=== PATIENT | male | born 1950 | race Caucasian/White ===

== ENCOUNTER → 2017-12-08 10:23 | Outpatient (CLI) | payer MEDICARE, OTHER, SELFPAY ==
--- NOTE | 2017-12-08 10:33 | RAD_ITS ---
STUDY: X-RAY - PELVIS REASON FOR EXAM: Male, 67 years old. Bilateral hip pain, arthritis. TECHNIQUE: Pelvis. COMPARISON: None. FINDINGS: Osteopenia. Multilevel mild to moderate lumbar degenerative disc disease and facet arthropathy. Partial fusion/ankylosis of the SI joints bilaterally. Iliac crests and pubic rami intact. No significant degeneration of the left hip joint. Right hip joint mild joint space narrowing, minimal superior acetabular margin osteophytic spurring, acetabular roof mild sclerosis. There is a cortical hump associated with synovial herniation pit of the superior head neck junction of femur, a feature that could reflect underlying femoral acetabular impingement. RAD/Pelvis 1 or 2 Views IMPRESSION: Mild DJD of the right hip articulation with features suggesting the possibility of. No significant DJD of the left hip joint. Multilevel lumbar spondylosis. 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 Electronically Signed: Ry Oneil, at 11:28 EDT Tel , Service support ,
[2017-12-08 12:34] LABS: Erythrocyte Sedimentation Rate 14 mm/hr (0-20)
[2017-12-08 12:38] LABS: ALB/GLOB Ratio 0.8 RATIO (0.9-2.4); AST(SGOT) 26 U/L (15-37); Absolute Lymphocyte Count 1.87 X10^3/ul (0.83-4.51); Absolute Neutrophil Count 4.2 X10^3/uL (2.0-7.7); Alanine Aminotransfer ALT/SGPT 41 U/L (16-61); Albumin, Serum 3.6 g/dL (3.2-5.0); Alkaline Phosphatase 62 U/L (45-117); Anion Gap 6 (5-15); BUN 15 mg/dL (7-18); BUN/Creat Ratio 16.4 RATIO (10-20); Basophil# 0.03 X10^3/uL; Basophil% 0.4 % (0-1); Calcium,Total 8.7 mg/dL (8.5-10.1); Chloride 106 mmol/L (98-107); Creatinine, Serum 0.92 mg/dL (0.70-1.30); EST Glomerular Filtration Rate 88 mL/min (>60); Eosinophil# 0.25 X10^3/uL; Eosinophils% 3.5 % (0-5); Est Glom Filt Rate - Afr Amer 106 mL/min (>60); Globulin 4.3 g/dL (2.2-4.2); Glucose 91 mg/dL (74-106); Hematocrit 43.7 % (40-54); Lymphocyte # 1.87 X10^3/ul (4.0); Lymphocyte % 26.3 % (19-41); Mean Corpuscular Volume 96.9 fL (80-94); Mean Platelet Vol. 9.8 fl (6.2-12.0); Monocyte% 11.3 % (0-10); Neutrophil # 4.15 X10^3/uL (2.7-7.7); Neutrophil % 58.4 % (47-70); Platelet Count 373 K/mm3 (150-450); Potassium 4.4 mmol/L (3.5-5.1); Protein, Total 7.9 g/dL (6.4-8.2); RBC Distribution Width CV 12.8 % (11.6-14.6); RBC Distribution Width SD 45.3 fl (35.1-43.9); Red Blood Count 4.51 M/mm3 (4.6-6.2); Rheumatoid Factor < 10.0 IU/mL (<15); Sodium Level 140 mmol/L (136-145); White Blood Count 7.1 K/mm3 (4.4-11.0)
[2017-12-08 12:39] LABS: POSITIVE COUNT NO; POSITIVE DIFFERENTIAL NO; POSITIVE MORPHOLOGY NO
[2017-12-16 11:10] LABS: CCP IgG Antibodies 3 units (0-19); HEPATITIS B SURFACE AG Negative (Negative); HLA B27 Negative (.); Hep B Surface Antibodies Non Reactive (.); Hep C Antibodies <0.1 s/co ratio (0.0-0.9)
== END ==
PROVIDERS: Family Provider Family Medicine; PCP Family Medicine; Visit Provider Internal Medicine Rheumatology
DX: M06.4 Inflammatory polyarthropathy (principal); M21.40 Flat foot [pes planus] (acquired), unspecified foot; M17.0 Bilateral primary osteoarthritis of knee; M47.892 Other spondylosis, cervical region
CPT/HCPCS: 36415; 72170; 80053; 81374; 85025; 85652; 86140; 86200; 86431; 86706; 86803; 87340

== ENCOUNTER 2021-09-06 20:59 | Emergency (ER) | payer BC, SELFPAY ==
[2021-09-06 20:59] VITALS: BP 133/84; PULSE 95; RESP 16; TEMP 37.1; O2SAT 97; BMI 38.3
--- NOTE | 2021-09-06 21:50 | EKG12_ITS ---
Test Reason : TACHYCARDIA Blood Pressure : / mmHG Vent. Rate : 087 BPM Atrial Rate : 087 BPM P-R Int : 168 ms QRS Dur : 098 ms QT Int : 382 ms P-R-T Axes : 039 028 025 degrees QTc Int : 459 ms Normal sinus rhythm Normal ECG Confirmed by ARA TURPIN, DENA ([id number]), video news editor ANDREW MALONEY ([id number]) on 09/10/2021 11:09:20 AM Referred By: Confirmed By:DENA BULLOCK MD
--- NOTE | 2021-09-06 22:28 | RAD_ITS ---
STUDY: X-RAY CHEST REASON FOR EXAM: Male, 70 years old. Cough TECHNIQUE: Single frontal view of the chest. COMPARISON: None. FINDINGS: The lungs are clear and expanded. There is no demonstrated pleural abnormality. Heart size is within normal limits with normal pulmonary vasculature. The thoracic aorta is moderately elongated. Thoracic spine degenerative spurring. No acute osseous abnormality. Trachea is midline. There is no demonstrated abnormality of the visualized soft tissue structures of the upper abdomen. RAD/Chest 1 View (Portable) IMPRESSION: No acute cardiopulmonary disease process identified. Electronically Signed: Bay Hooker MD at 23:01 EDT ,
[2021-09-06 22:29] LABS: Absolute Lymphocyte Count 1.87 X10^3/uL (0.83-4.51); Absolute Neutrophil Count 15.7 X10^3/uL (2.0-7.7); Basophil# 0.07 X10^3/uL; Basophil% 0.4 % (0-1); Eosinophil# 0.05 X10^3/uL; Eosinophils% 0.3 % (0-5); Hematocrit 44.3 % (40-54); Hemoglobin 14.9 g/dL (13.0-16.5); Lymphocyte # 1.87 X10^3/ul (0.83-4.51); Lymphocyte % 9.6 % (19-41); Mean Corp Hgb Conc 33.6 g/dL (32-36); Mean Corpuscular Hgb 31.4 pg (27.0-32.0); Mean Corpuscular Volume 93.5 fL (80-94); Mean Platelet Vol. 9.2 fl (6.2-12.0); Monocyte# 1.73 X10^3/uL; Monocyte% 8.9 % (0-10); NRBC Flagged by Analyzer 0 % (0-5); Neutrophil # 15.73 X10^3/uL (2.7-7.7); Neutrophil % 80.4 % (47-70); POSITIVE DIFFERENTIAL YES; Platelet Count 349 K/mm3 (150-450); RBC Distribution Width CV 13.2 % (11.6-14.6); RBC Distribution Width SD 45.5 fl (35.1-43.9); Red Blood Count 4.74 M/mm3 (4.6-6.2); White Blood Count 19.5 K/mm3 (4.4-11.0)
[2021-09-06 22:42] VITALS: BP 115/76; PULSE 78; RESP 24; O2SAT 94
[2021-09-06 22:48] LABS: ALB/GLOB Ratio 0.9 RATIO (0.9-2.4); AST(SGOT) 20 U/L (15-37); Alanine Aminotransfer ALT/SGPT 35 U/L (16-61); Albumin, Serum 3.8 g/dL (3.2-5.0); Alkaline Phosphatase 62 U/L (45-117); Anion Gap 6 (5-15); BUN 19 mg/dL (7-18); BUN/Creat Ratio 22.3 RATIO (10-20); Calcium,Total 8.4 mg/dL (8.5-10.1); Chloride 106 mmol/L (98-107); Creatinine, Serum 0.85 mg/dL (0.70-1.30); EST Glomerular Filtration Rate 94 mL/min (>60); Est Glom Filt Rate - Afr Amer 114 mL/min (>60); Estimated Creatinine Clearance 76.68 ml/min; Globulin 4.2 g/dL (2.2-4.2); Glucose 107 mg/dL (74-106); Potassium 3.9 mmol/L (3.5-5.1); Sodium Level 136 mmol/L (136-145); Troponin-I HS 3 pg/mL (3.0-78.0)
[2021-09-06] MEDS: 0.9% Normal Saline 1,000 ML 1000 ML IV (22:51)
[2021-09-06 22:53] LABS: Bacteria 0 SEEN /hpf (None Seen); Mucous, Urine 0 SEEN /hpf (<or=2+); Red Blood Cells-Urine 0 SEEN /hpf (0-5); Squamous Epithelial Cells - UA 0 SEEN /hpf (0-5); White Blood Cells 0 SEEN /hpf (0-5)
[2021-09-06 22:54] LABS: Color, Urine Yellow (Yellow); Glucose, Dipstick Normal (Normal); Ketone-Dipstick 15 mg/dl (Negative); Leukocyte Esterase-Dipstick Negative /ul (Negative); Nitrite-Dipstick Negative (Negative); Occult Blood-Urine 25 /ul (Negative); Protein-Dipstick Negative (Negative); Specific Gravity, Urine 1.025 (1.002-1.030); Urine Bilirubin Dipstick Negative (Negative); Urine Clarity Clear (Clear); Urine Urobilinogen Normal (Normal)
[2021-09-06 22:57] LABS: Differential Comment SCANNED; Differential Indicated SCAN CRITERIA MET
--- NOTE | 2021-09-06 23:33 | CT_ITS ---
STUDY: CT ABDOMEN AND PELVIS WITH CONTRAST REASON FOR EXAM: Male, 70 years old patient with weakness. RADIATION DOSAGE (If Supplied By Facility): CTDIvol = ( 15.07 ) mGy, DLP = ( 976.41 ) mGycm TECHNIQUE: Transaxial images were obtained from the dome of the diaphragm to the symphysis pubis with oral contrast. 100 mL of IV Isovue-300 was administered. Sagittal and coronal images were reconstructed. Individualized dose optimization techniques were used for this CT. COMPARISON: None. FINDINGS: The visualized lung bases are unremarkable. The visualized portions of the heart are within normal limits. There is hepatomegaly with diffuse hepatic enlargement. The liver measures approximately 20 cm in greatest dimension. There is non-visualization of the gallbladder, which may be secondary to either contraction or a prior cholecystectomy. There is dilatation of the extrahepatic biliary ducts with maximum transverse dimension of approximately 11.2 mm. Normal spleen. Normal pancreas. Normal bilateral adrenal glands. There is a small cyst arising from lower pole right kidney measuring approximately 1.4 cm. There is no evidence for hydronephrosis, hydroureter or radiopaque ureteral calculus. Normal visualized stomach. There is no evidence for dilated bowel, ascites or pneumoperitoneum. Enteric contrast is visible within the distal small bowel and colon. There are multiple diverticula primarily in the descending colon and sigmoid colon. There is minimal solid stool present. The colon is opacified primarily with enteric contrast. There is liquid stool visible particularly in the rectum and distal sigmoid colon suggesting diarrhea and sequela of an acute infectious or inflammatory colitis. The appendix is visualized and appears normal. There is diffuse atherosclerotic calcification of the abdominal aorta and iliac arteries, without a demonstrated aneurysm. There is venous distention of the inferior vena cava (IVC). Normal retroperitoneum. Normal urinary bladder. Normal visualized prostate gland. Normal abdominal wall. There are diffuse degenerative changes of the visualized spine. The patient has had a total right hip arthroplasty. CT/Abdomen/Pelvis WITH Contrast IMPRESSION: 1. The findings suggest possible acute infectious or inflammatory colitis. 2. Hepatomegaly. Electronically Signed: Arlen Medina MD at 2:40 EDT ,
[2021-09-06 23:44] VITALS: BP 117/61; PULSE 62; RESP 19; O2SAT 95
--- NOTE | 2021-09-07 00:24 | EDS_ITS ---
HPI History of Present Illness Chief Complaint: Weakness Informant: patient Onset/Context/Timing Onset: Today Context: Gradual Onset Timing: Continuous Quality: Fatigue Location: Generalized Worsened by: Nothing Relieved by: Nothing Narrative Narrative: Patient presents with increasing fatigue throughout the day today. Patient states he woke up today and has felt tired all day. Patient states that he feels weak as well. Patient states that his heart rate usually runs in the 50s and 60s. Patient states that he checked his heart rate earlier today and it was 110. Patient states it is improving. Patient states nothing makes his fatigue any better or worse. Patient admits to recent cough. Patient denies any chest pain or shortness of breath. Patient denies any nausea or vomiting. Patient denies any urinary complaints. [facility] Medical History Atrial fibrillation Former smoker Right cataract Home Medications atorvastatin 10 mg PO QHS 09/06/21 [History Last Taken Unknown] biotin 10,000 mcg PO DAILY 09/06/21 [History Last Taken Unknown] docusate sodium [Colace] 100 mg PO QODAY 09/06/21 [History Last Taken Unknown] meclizine 12.5 mg PO BID 09/06/21 [History Last Taken Unknown] zinc 50 mg PO DAILY 09/06/21 [History Last Taken Unknown] Allergy/AdvReac Type Severity Reaction Status Date / Time No Known Allergies Allergy Verified 09/06/21 21:01 Surgical History History of cholecystectomy History of right hip replacement Social History Smoking Status: Former smoker ROS ROS ED Constitutional Constitutional ED: Denies chills or fever(s) Eyes Eyes: Denies blurry vision or change in vision ENT ENT ED: Denies rhinorrhea or sore throat Cardiovascular Cardiovascular: Denies chest pain or palpitations Respiratory/Chest Respiratory/Chest: Reports cough; Denies dyspnea or sputum Gastrointestinal Gastrointestinal: Denies nausea or vomiting Genitourinary Genitourinary ED: Denies dysuria or hematuria Musculoskeletal Musculoskeletal: Denies back pain or neck pain Integumentary Denies abscess or rash Neurologic Neurologic: Reports weakness; Denies headache(s) Allergic/Immunologic Allergic/Immunologic ED: Denies mouth swelling or urticaria EXAM Physical Exam Const Vital Signs: 09/06/21 20:59 09/06/21 22:30 09/06/21 22:42 Temperature 98.7 F Temperature Source Temporal Pulse Rate 95 78 Respiratory Rate 16 24 H Respiratory Effort Normal Respiratory Pattern Normal Blood Pressure 133/84 H 115/76 Blood Pressure Mean 100 89 Pulse Ox 97 94 Oxygen Delivery Method Room Air Room Air 09/06/21 23:44 09/07/21 00:32 Temperature Temperature Source Pulse Rate 62 56 L Respiratory Rate 19 H 16 Respiratory Effort Respiratory Pattern Blood Pressure 117/61 120/69 Blood Pressure Mean 79 86 Pulse Ox 95 95 Oxygen Delivery Method Room Air Room Air Positive well nourished and well developed General Appearance ED: well developed and NAD HEENT Reports moist mucous membranes Neck supple and no JVD Resp normal respiratory effort and clear to auscultation bilaterally Cardio regular rate, regular rhythm and no murmurs GI normal to inspection, nondistended, normoactive bowel sounds and non-tender Palpation: soft Extremity normal to inspection General Extremety ED: Negative for edema or tenderness General Extremity: Negative for edema Neuro oriented x3, CN's II-XII intact bilaterally and no sensory deficits noted Sensorium / Orientation: alert Motor Exam: strength 5/5 throughout Psych mental status grossly normal Skin no rashes or lesions noted MDM MDM MDM Narrative Medical decision making narrative: Patient was given IV fluids here. EKG was obtained. On my interpretation, it showed a normal sinus rhythm with a rate of 87. IA interval, QRS interval, and QTc intervals were all normal. [place] was normal. There are no acute ST or T wave changes. CBC shows leukocytosis of 19.5. Comprehensive metabolic profile showed a slightly elevated bilirubin of 1.3. High-sensitivity troponin was normal. Urinalysis does not show any evide nce of urinary tract infection. Portable 1 view chest x-ray was obtained. On my interpretation, lung tay are clear. There is normal cardiac silhouette. Bony thorax is normal. There is no acute process noted. Radiologist also interpreted the x-ray and agrees. Because of the leukocytosis, CT scan of the abdomen pelvis was obtained. Care of the patient was signed out to the oncoming physician pending CT results. If the CT results are negative, I feel the patient can be discharged home with outpatient follow-up. Lab Data Attestation: I reviewed the patient's lab results. Labs: Laboratory Results - last 24 hr 09/06/21 09/06/21 09/06/21 22:11 22:11 22:45 WBC 19.5 H RBC 4.74 Hgb 14.9 Hct 44.3 MCV 93.5 MCH 31.4 MCHC 33.6 RDW Std Deviation 45.5 H RDW Coeff of Lachelle 13.2 Plt Count 349 MPV 9.2 Immature Gran % (Auto) 0.400 Neut % (Auto) 80.4 H Lymph % (Auto) 9.6 L [place] % (Auto) 8.9 Eos % (Auto) 0.3 Baso % (Auto) 0.4 Absolute Neuts (auto) 15.7 H Absolute Lymphs (auto) 1.87 Nucleated RBC % 0 Differential Comment SCANNED Diff Path Review September foll Sodium 136 Potassium 3.9 Chloride 106 Carbon Dioxide 24.0 Anion Gap 6 BUN 19 H Creatinine 0.85 Estim Creat Clear Calc 76.68 Est GFR (MDRD) Af Amer 114 Est GFR (MDRD) Non-Af 94 BUN/Creatinine Ratio 22.3 H Glucose 107 H Calcium 8.4 L Total Bilirubin 1.30 H AST 20 ALT 35 Alkaline Phosphatase 62 Troponin I High Sens 3 Total Protein 8.0 Albumin 3.8 Globulin 4.2 Albumin/Globulin Ratio 0.9 Urine Color Yellow Urine Clarity Clear Urine pH 5.0 Ur Specific [place] 1.025 Urine Protein Negative Urine Glucose (UA) Normal Urine Ketones 15 H Urine Occult Blood 25 H Urine Nitrite Negative Urine Bilirubin Negative Urine Urobilinogen Normal Ur Leukocyte Esterase Negative Urine RBC 0 SEEN Urine WBC 0 SEEN Ur Squamous Epith Cells 0 SEEN Urine Bacteria 0 SEEN Urine Mucus 0 SEEN Radiography Chest X-Ray - ED: 1 View, Read by ED Physician, Read by Radiologist and No Acute Disease Diagnostic Testing: Clinical Impression(s) from Imaging Studies Chest X-Ray 09/06/21 22:28 IMPRESSION: No acute cardiopulmonary disease process identified. Electronically Signed: Bay Hooker MD at 23:01 EDT , Discharge Plan Triage Chief Complaint: Weakness ED Provider: Vikas Mon Dx/Rx/DC Orders Prescriptions: No Action atorvastatin 10 mg tablet 10 mg PO QHS RF: 0 meclizine 12.5 mg tablet 12.5 mg PO BID RF: 0 biotin 10,000 mcg Capsule 10,000 mcg PO DAILY RF: 0 docusate sodium [Colace] 100 mg Capsule 100 mg PO QODAY RF: 0 zinc 50 mg Tablet 50 mg PO DAILY RF: 0 Primary Care Provider: Sj Guevara Referrals: Sj Guevara MD [Primary Care Provider] -
[2021-09-07 00:32] VITALS: BP 120/69; PULSE 56; RESP 16; O2SAT 95
[2021-09-07 02:00] VITALS: BP 106/63; PULSE 59; RESP 15; O2SAT 95
[2021-09-07 03:17] VITALS: BP 134/73; PULSE 64; RESP 15; O2SAT 97
[2021-09-09 10:13] LABS: Pathologist Review Reviewed
== END 2021-09-07 03:23 | disposition home or self-care (01) ==
PROVIDERS: Emergency Provider Emergency Medicine; PCP Family Medicine; Visit Provider Emergency Medicine
DX: R53.1 Weakness (principal); I48.91 Unspecified atrial fibrillation; Z87.891 Personal history of nicotine dependence; R53.83 Other fatigue; Z79.899 Other long term (current) drug therapy
CPT/HCPCS: 71045; 74177; 80053; 81001; 84484; 85025; 93005; 96360; 99283; J7030; A4216